=== PATIENT | female | born 1960 | race African-American/Black ===

== ENCOUNTER 2019-02-04 16:13 | Inpatient (IN) ==
[2019-02-04] MEDS ORDERED: SODIUM CHLORIDE 0.9% 500 ML IV STA (18:01)
[2019-02-04 18:06] LABS: Basophils % 0.4 % (0.0-0.8); Eosinophils % 0.4 % (0.00-10.9); Hematocrit 37.3 VOL% (35.7-47.0); Hemoglobin 11.6 GM/DL (12.0-16.0); Immature Granulocytes % 0.2 %; Immature Granulocytes Absolute 0.02 #; Lymphocytes # 2.1 10*3/uL (1.4-4.0); Mean Corpuscular HGB Conc 31.1 GM/DL (32-36); Mean Corpuscular Volume 79.9 FL (87-102); Mean Platelet Volume 12.8 FL (9.6-12.0); Monocytes % 8.4 % (1.7-12.7); Neutrophils % 64.6 % (38.7-73.9); Platelet Count 152 T/CUMM (130-400); Red Blood Count 4.67 MC/CUMM (3.8-5.5); Red Cell Distribution Width 13.3 % (9.3-17.3); White Blood Count 8.1 T/CUMM (4-12)
[2019-02-04 18:30] LABS: Alanine Aminotransferase < 9 U/L (13-56); Albumin 3.5 G/DL (3.4-5.0); Alkaline Phosphatase 72 U/L (45-117); Aspartate Amino Transferase 11 U/L (0-37); Blood Urea Nitrogen 27 MG/DL (7-18); Calcium 9.8 MG/DL (8.5-10.1); Glucose 162 MG/DL (74-106); Osmolality,Calculated 283.7 MOS/KG (273-304); Total Protein 7.6 G/DL (6.4-8.3)
[2019-02-04 20:01] LABS: Apearance,Urine CLOUDY (Clear); Bilirubin,Urine Negative (Negative); Blood, Urine Small mg/dL (Negative); Glucose,Urine (UA) Negative (Negative); Ketones,Urine 20 mg/dL (Negative); Nitrite,Urine Negative (Negative); Protein,Urine 30 MG/DL; Squamous Epithelial Cell,Urine Occasional /HPF (0-10); Urine Color Yellow (Yellow); Urine Specific Gravity 1.038 (1.001-1.035); Urine Urobilinogen < 2.0 EU/DL (0.2-1.0); WBC,Urine 2195 /HPF (0-6)
[2019-02-04] MEDS ORDERED: LEVOFLOXACIN INJ 500 MG in PREMIX 1 EACH IV STA (20:08)
[2019-02-04] MEDS ORDERED: DOCUSATE SODIUM 100 MG CAPSULE PO PRN (22:20)
[2019-02-04] MEDS ORDERED: GLUCAGON 1 MG VIAL IM PRN (22:20)
[2019-02-04] MEDS ORDERED: DEXTROSE 50% 25 GM/50 ML VIAL IV PRN (22:20)
[2019-02-04] MEDS: INSULIN LISPRO 100 UNIT/ML SUBCUT SCH (22:56)
[2019-02-04] MEDS: FAMOTIDINE 20 MG TABLET PO SCH (23:14)
[2019-02-04] MEDS: ENOXAPARIN 40 MG/0.4 ML SYRINGE SUBCUT SCH (23:15)
[2019-02-04] MEDS: cefTRIAXone 1,000 MG in SYRINGE 1 EACH IV SCH (23:15)
[2019-02-04] MEDS: SODIUM CHLORIDE 0.9% 1,000 ML IV SCH (23:19)
[2019-02-05] MEDS: ONDANSETRON 4 MG/2 ML VIAL IV PRN (00:09)
[2019-02-05 04:58] LABS: Basophils % 0.4 % (0.0-0.8); Eosinophils # 0.1 10*3/uL (0.0-0.87); Eosinophils % 0.7 % (0.00-10.9); Hematocrit 34.7 VOL% (35.7-47.0); Hemoglobin 10.6 GM/DL (12.0-16.0); Immature Granulocytes % 0.5 %; Immature Granulocytes Absolute 0.04 #; Lymphocytes # 2.5 10*3/uL (1.4-4.0); Lymphocytes % 32.9 % (21.3-54.2); Mean Corpuscular HGB Conc 30.5 GM/DL (32-36); Mean Corpuscular Volume 80.9 FL (87-102); Mean Platelet Volume 13.2 FL (9.6-12.0); Monocytes % 8.2 % (1.7-12.7); Neutrophils % 57.3 % (38.7-73.9); Platelet Count 140 T/CUMM (130-400); Red Blood Count 4.29 MC/CUMM (3.8-5.5); Red Cell Distribution Width 13.2 % (9.3-17.3); White Blood Count 7.6 T/CUMM (4-12)
[2019-02-05 05:33] LABS: Calcium 9.1 MG/DL (8.5-10.1); Osmolality,Calculated 281.5 MOS/KG (273-304); Thyroid Stimulating Hormone 2.67 uIU/ml (0.358-3.74)
[2019-02-05] MEDS: POLYETHYLENE GLYCOL POWDER 17 GM PACK PO SCH (10:23)
[2019-02-05] MEDS: MEGESTROL 400 MG/10 ML UDCUP PO SCH (10:23)
[2019-02-05] MEDS: LISINOPRIL 10 MG TABLET PO SCH (10:23)
[2019-02-05] MEDS: FAMOTIDINE 20 MG TABLET PO SCH ×2 (10:23→20:26)
[2019-02-05] MEDS: ASPIRIN EC 81 MG TABLET PO SCH (10:23)
[2019-02-05] MEDS: ROSUVASTATIN 10 MG TABLET PO SCH (10:23)
[2019-02-05] MEDS: INSULIN LISPRO 100 UNIT/ML SUBCUT SCH ×4 (10:24→21:56)
[2019-02-05] MEDS: SODIUM CHLORIDE 0.9% 1,000 ML IV SCH ×3 (10:25→22:09)
[2019-02-05] MEDS: ACETAMINOPHEN 325 MG TABLET PO PRN (20:26)
[2019-02-05] MEDS: cefTRIAXone 1,000 MG in SYRINGE 1 EACH IV SCH (21:56)
[2019-02-05] MEDS: ENOXAPARIN 40 MG/0.4 ML SYRINGE SUBCUT SCH (22:02)
[2019-02-06 05:04] LABS: Basophils % 0.4 % (0.0-0.8); Eosinophils # 0.1 10*3/uL (0.0-0.87); Eosinophils % 0.9 % (0.00-10.9); Immature Granulocytes % 0.1 %; Immature Granulocytes Absolute 0.01 #; Lymphocytes # 2.8 10*3/uL (1.4-4.0); Mean Corpuscular HGB Conc 30.3 GM/DL (32-36); Mean Corpuscular Volume 80.5 FL (87-102); Monocytes % 6.9 % (1.7-12.7); Neutrophils % 49.7 % (38.7-73.9); Platelet Count 142 T/CUMM (130-400); Red Cell Distribution Width 13.2 % (9.3-17.3); White Blood Count 6.7 T/CUMM (4-12)
[2019-02-06 05:23] LABS: Calcium 8.8 MG/DL (8.5-10.1)
[2019-02-06] MEDS: SODIUM CHLORIDE 0.9% 1,000 ML IV SCH ×3 (06:38→22:51)
[2019-02-06] MEDS: ONDANSETRON 4 MG/2 ML VIAL IV PRN ×2 (09:00→13:38)
[2019-02-06] MEDS: ROSUVASTATIN 10 MG TABLET PO SCH (09:55)
[2019-02-06] MEDS: ASPIRIN EC 81 MG TABLET PO SCH (09:55)
[2019-02-06] MEDS: MEGESTROL 400 MG/10 ML UDCUP PO SCH (09:55)
[2019-02-06] MEDS: LISINOPRIL 10 MG TABLET PO SCH (09:55)
[2019-02-06] MEDS: POLYETHYLENE GLYCOL POWDER 17 GM PACK PO SCH (09:55)
[2019-02-06] MEDS: FAMOTIDINE 20 MG TABLET PO SCH ×2 (09:55→22:39)
[2019-02-06] MEDS: INSULIN LISPRO 100 UNIT/ML SUBCUT SCH ×4 (09:56→22:38)
[2019-02-06] MEDS: ACETAMINOPHEN 325 MG TABLET PO PRN (13:37)
[2019-02-06] MEDS: ENOXAPARIN 40 MG/0.4 ML SYRINGE SUBCUT SCH (21:50)
[2019-02-06] MEDS: cefTRIAXone 1,000 MG in SYRINGE 1 EACH IV SCH (21:50)
[2019-02-07 05:48] LABS: Basophils % 0.3 % (0.0-0.8); Eosinophils # 0.1 10*3/uL (0.0-0.87); Eosinophils % 1.4 % (0.00-10.9); Hematocrit 31.8 VOL% (35.7-47.0); Hemoglobin 9.6 GM/DL (12.0-16.0); Immature Granulocytes % 0.3 %; Immature Granulocytes Absolute 0.02 #; Lymphocytes # 2.8 10*3/uL (1.4-4.0); Lymphocytes % 39.1 % (21.3-54.2); Mean Corpuscular HGB Conc 30.2 GM/DL (32-36); Mean Corpuscular Volume 80.9 FL (87-102); Mean Platelet Volume 12.4 FL (9.6-12.0); Monocytes % 7.9 % (1.7-12.7); Platelet Count 142 T/CUMM (130-400); Red Blood Count 3.93 MC/CUMM (3.8-5.5); Red Cell Distribution Width 13.3 % (9.3-17.3); White Blood Count 7.1 T/CUMM (4-12)
[2019-02-07 06:09] LABS: Calcium 8.6 MG/DL (8.5-10.1); Osmolality,Calculated 286.6 MOS/KG (273-304)
[2019-02-07] MEDS ORDERED: PROMETHAZINE INJ 25 MG in SODIUM CHLORIDE 0.9% 50 ML IV PRN (07:12)
[2019-02-07] MEDS ORDERED: SUCRALFATE 1 GM/10 ML UDCUP PO SCH (07:30)
[2019-02-07] MEDS: SODIUM CHLORIDE 0.9% 1,000 ML IV SCH ×3 (08:51→23:23)
[2019-02-07] MEDS: MEGESTROL 400 MG/10 ML UDCUP PO SCH (08:52)
[2019-02-07] MEDS: ASPIRIN EC 81 MG TABLET PO SCH (08:53)
[2019-02-07] MEDS: ROSUVASTATIN 10 MG TABLET PO SCH (08:53)
[2019-02-07] MEDS: PANTOPRAZOLE 40 MG TABLET PO SCH ×2 (08:53→18:38)
[2019-02-07] MEDS: LISINOPRIL 10 MG TABLET PO SCH (08:53)
[2019-02-07] MEDS: POLYETHYLENE GLYCOL POWDER 17 GM PACK PO SCH (08:54)
[2019-02-07] MEDS: INSULIN LISPRO 100 UNIT/ML SUBCUT SCH ×4 (10:19→21:57)
[2019-02-07] MEDS ORDERED: hydrALAZINE 20 MG/1 ML VIAL IV PRN (14:08)
[2019-02-07] MEDS: cefTRIAXone 1,000 MG in SYRINGE 1 EACH IV SCH (22:02)
[2019-02-08 05:04] LABS: Basophils % 0.2 % (0.0-0.8); Eosinophils # 0.1 10*3/uL (0.0-0.87); Eosinophils % 1.6 % (0.00-10.9); Hematocrit 32.6 VOL% (35.7-47.0); Hemoglobin 10.3 GM/DL (12.0-16.0); Immature Granulocytes % 0.5 %; Immature Granulocytes Absolute 0.04 #; Lymphocytes # 2.9 10*3/uL (1.4-4.0); Lymphocytes % 35.1 % (21.3-54.2); Mean Corpuscular HGB Conc 31.6 GM/DL (32-36); Mean Corpuscular Volume 79.5 FL (87-102); Mean Platelet Volume 12.9 FL (9.6-12.0); Monocytes % 6.9 % (1.7-12.7); Neutrophils % 55.7 % (38.7-73.9); Platelet Count 143 T/CUMM (130-400); Red Cell Distribution Width 13.4 % (9.3-17.3); White Blood Count 8.1 T/CUMM (4-12)
[2019-02-08] MEDS: ONDANSETRON 4 MG/2 ML VIAL IV PRN (05:20)
[2019-02-08 05:33] LABS: Calcium 8.8 MG/DL (8.5-10.1); Osmolality,Calculated 282.8 MOS/KG (273-304)
[2019-02-08] MEDS: PANTOPRAZOLE 40 MG TABLET PO SCH (08:01)
[2019-02-08] MEDS ORDERED: LIDOCAINE 2% 5 ML VIAL ONE (10:00)
[2019-02-08] MEDS ORDERED: PROPOFOL 200 MG/20 ML VIAL IV ONE (10:00)
[2019-02-08] MEDS ORDERED: PHENYLEPHRINE 1 MG/10 ML SYRINGE IV ONE (10:00)
[2019-02-08] MEDS: INSULIN LISPRO 100 UNIT/ML SUBCUT SCH ×2 (10:24→16:37)
[2019-02-08] MEDS: LISINOPRIL 10 MG TABLET PO SCH (10:24)
[2019-02-08] MEDS: ROSUVASTATIN 10 MG TABLET PO SCH (10:24)
[2019-02-08] MEDS: ASPIRIN EC 81 MG TABLET PO SCH (10:25)
[2019-02-08] MEDS: POLYETHYLENE GLYCOL POWDER 17 GM PACK PO SCH (10:26)
[2019-02-08] MEDS: MEGESTROL 400 MG/10 ML UDCUP PO SCH (10:26)
[2019-02-08] MEDS: cefTRIAXone 1,000 MG in SYRINGE 1 EACH IV SCH (12:06)
[2019-02-08 13:13] VITALS: BP 153/71
== END 2019-02-08 15:30 | disposition home or self-care (01) | DRG 689 ==
LOC: N.ED 16:13 → N.EDINP 20:29 → N.2E 20:53
PROVIDERS: ADMIT Internal Medicine; ATTEND Internal Medicine

== ENCOUNTER 2019-02-21 11:40 | Inpatient (IN) ==
[2019-02-21] MEDS ORDERED: ONDANSETRON 4 MG/2 ML VIAL IV STA (14:47)
[2019-02-21] MEDS ORDERED: METOCLOPRAMIDE 10 MG/2 ML VIAL IV STA (14:47)
[2019-02-21] MEDS ORDERED: SODIUM CHLORIDE 0.9% 500 ML IV STA (14:47)
[2019-02-21] MEDS ORDERED: PANTOPRAZOLE 40 MG VIAL IV STA (14:47)
[2019-02-21 16:00] LABS: Basophils % 0.4 % (0.0-0.8); Eosinophils % 0.1 % (0.00-10.9); Hematocrit 36.9 VOL% (35.7-47.0); Hemoglobin 11.3 GM/DL (12.0-16.0); Immature Granulocytes % 0.6 %; Immature Granulocytes Absolute 0.06 #; Lymphocytes # 2.5 10*3/uL (1.4-4.0); Lymphocytes % 24.5 % (21.3-54.2); Mean Corpuscular HGB Conc 30.6 GM/DL (32-36); Mean Platelet Volume 13.3 FL (9.6-12.0); Monocytes % 8.3 % (1.7-12.7); Neutrophils % 66.1 % (38.7-73.9); Platelet Count 167 T/CUMM (130-400); Red Blood Count 4.67 MC/CUMM (3.8-5.5); Red Cell Distribution Width 15.7 % (9.3-17.3); White Blood Count 10.1 T/CUMM (4-12)
[2019-02-21 16:32] LABS: Apearance,Urine CLOUDY (Clear); Bacteria,Urine Many /HPF (Few); Blood, Urine Small mg/dL (Negative); Glucose,Urine (UA) 50 mg/dL (Negative); Granular Casts,Urine 13 /LPF (0-1); Ketones,Urine 20 mg/dL (Negative); Mucus,Urine Occasional /LPF (Occasional); Nitrite,Urine Negative (Negative); Protein,Urine 100 MG/DL; RBC,Urine 8 /HPF (0-4); Squamous Epithelial Cell,Urine Occasional /HPF (0-10); Urine Color Amber (Yellow); Urine Specific Gravity 1.027 (1.001-1.035); WBC,Urine 106 /HPF (0-6)
[2019-02-21 16:34] LABS: Bilirubin,Urine Small mg/dL (Negative)
[2019-02-21] MEDS ORDERED: cefTRIAXone 1,000 MG in SODIUM CHLORIDE 0.9% 100 ML IV STA (16:43)
[2019-02-21] MEDS ORDERED: cefTRIAXone 1,000 MG in SYRINGE 1 EACH IV STA (16:44)
[2019-02-21 17:01] LABS: Alanine Aminotransferase < 6 U/L (13-56); Albumin 3.4 G/DL (3.4-5.0); Alkaline Phosphatase 69 U/L (45-117); Amylase 37 U/L (25-115); Aspartate Amino Transferase 8 U/L (0-37); Blood Urea Nitrogen 16 MG/DL (7-18); Calcium 9.6 MG/DL (8.5-10.1); Glucose 136 MG/DL (74-106); Total Protein 6.9 G/DL (6.4-8.3)
[2019-02-21] MEDS ORDERED: DOCUSATE SODIUM 100 MG CAPSULE PO PRN (18:56)
[2019-02-21] MEDS ORDERED: LACTULOSE 20 GM/30 ML UDCUP PO PRN (18:56)
[2019-02-21] MEDS ORDERED: DEXTROSE 50% 25 GM/50 ML VIAL IV PRN (19:29)
[2019-02-21] MEDS ORDERED: GLUCAGON 1 MG VIAL IM PRN (19:29)
[2019-02-21] MEDS: hydrALAZINE 20 MG/1 ML VIAL IV PRN (19:52)
[2019-02-21] MEDS: INSULIN REGULAR 100 UNIT/ML SUBCUT SCH (20:54)
[2019-02-21] MEDS: SODIUM CHLORIDE 0.45% 1,000 ML IV SCH (20:54)
[2019-02-21] MEDS: ENOXAPARIN 40 MG/0.4 ML SYRINGE SUBCUT SCH (21:55)
[2019-02-21] MEDS: rOPINIRole 0.25 MG TABLET PO SCH (21:55)
[2019-02-22 05:07] LABS: Basophils # 0.1 10*3/uL (0.0-0.2); Basophils % 0.5 % (0.0-0.8); Eosinophils % 0.2 % (0.00-10.9); Hematocrit 33.5 VOL% (35.7-47.0); Hemoglobin 10.4 GM/DL (12.0-16.0); Immature Granulocytes % 0.5 %; Immature Granulocytes Absolute 0.05 #; Lymphocytes # 3.2 10*3/uL (1.4-4.0); Lymphocytes % 31.1 % (21.3-54.2); Mean Corpuscular Volume 77.7 FL (87-102); Mean Platelet Volume 12.3 FL (9.6-12.0); Monocytes % 6.7 % (1.7-12.7); Platelet Count 200 T/CUMM (130-400); Red Blood Count 4.31 MC/CUMM (3.8-5.5); Red Cell Distribution Width 15.3 % (9.3-17.3); White Blood Count 10.3 T/CUMM (4-12)
[2019-02-22 05:27] LABS: Calcium 9.5 MG/DL (8.5-10.1); Osmolality,Calculated 285.1 MOS/KG (273-304)
[2019-02-22] MEDS: PANTOPRAZOLE 40 MG TABLET PO SCH ×2 (06:05→17:29)
[2019-02-22] MEDS ORDERED: POTASSIUM CHLORIDE 20 MEQ TABLET PO PRN (07:12)
[2019-02-22] MEDS: INSULIN REGULAR 100 UNIT/ML SUBCUT SCH ×4 (08:14→21:20)
[2019-02-22] MEDS: amLODIPine 5 MG TABLET PO SCH (08:34)
[2019-02-22] MEDS: ROSUVASTATIN 10 MG TABLET PO SCH (08:34)
[2019-02-22] MEDS: LISINOPRIL 10 MG TABLET PO SCH (08:34)
[2019-02-22] MEDS: SERTRALINE 50 MG TABLET PO SCH (08:35)
[2019-02-22] MEDS: MEGESTROL 400 MG/10 ML UDCUP PO SCH (08:35)
[2019-02-22] MEDS: ASPIRIN EC 325 MG TABLET PO SCH (08:35)
[2019-02-22] MEDS: cefTRIAXone 2,000 MG in SYRINGE 1 EACH IV SCH (08:35)
[2019-02-22] MEDS: SODIUM CHLORIDE 0.45% 1,000 ML IV SCH (16:17)
[2019-02-22] MEDS: ONDANSETRON 4 MG/2 ML VIAL IV PRN ×2 (17:29→21:46)
[2019-02-22] MEDS: rOPINIRole 0.25 MG TABLET PO SCH (21:19)
[2019-02-22] MEDS: ENOXAPARIN 40 MG/0.4 ML SYRINGE SUBCUT SCH (21:20)
[2019-02-23 08:42] LABS: Basophils % 0.4 % (0.0-0.8); Eosinophils # 0.1 10*3/uL (0.0-0.87); Eosinophils % 0.7 % (0.00-10.9); Hematocrit 31.7 VOL% (35.7-47.0); Hemoglobin 9.8 GM/DL (12.0-16.0); Immature Granulocytes % 0.5 %; Immature Granulocytes Absolute 0.04 #; Lymphocytes # 2.9 10*3/uL (1.4-4.0); Lymphocytes % 36.1 % (21.3-54.2); Mean Corpuscular HGB Conc 30.9 GM/DL (32-36); Mean Corpuscular Volume 77.7 FL (87-102); Monocytes % 6.8 % (1.7-12.7); Neutrophils % 55.5 % (38.7-73.9); Platelet Count 180 T/CUMM (130-400); Red Blood Count 4.08 MC/CUMM (3.8-5.5); Red Cell Distribution Width 15.1 % (9.3-17.3); White Blood Count 8.1 T/CUMM (4-12)
[2019-02-23] MEDS: INSULIN REGULAR 100 UNIT/ML SUBCUT SCH ×4 (08:56→21:29)
[2019-02-23 09:04] LABS: Alanine Aminotransferase < 6 U/L (13-56); Albumin 2.7 G/DL (3.4-5.0); Alkaline Phosphatase 57 U/L (45-117); Aspartate Amino Transferase 4 U/L (0-37); Blood Urea Nitrogen 11 MG/DL (7-18); Calcium 8.8 MG/DL (8.5-10.1); Glucose 150 MG/DL (74-106); Osmolality,Calculated 278.5 MOS/KG (273-304); Total Protein 6.2 G/DL (6.4-8.3)
[2019-02-23] MEDS: LISINOPRIL 10 MG TABLET PO SCH (13:15)
[2019-02-23] MEDS: ROSUVASTATIN 10 MG TABLET PO SCH (13:15)
[2019-02-23] MEDS: ASPIRIN EC 325 MG TABLET PO SCH (13:15)
[2019-02-23] MEDS: amLODIPine 5 MG TABLET PO SCH (13:16)
[2019-02-23] MEDS: SERTRALINE 50 MG TABLET PO SCH (13:16)
[2019-02-23] MEDS: MEGESTROL 400 MG/10 ML UDCUP PO SCH (13:16)
[2019-02-23] MEDS: PANTOPRAZOLE 40 MG TABLET PO SCH ×3 (13:16→17:30)
[2019-02-23] MEDS: SODIUM CHLORIDE 0.45% 1,000 ML IV SCH (14:42)
[2019-02-23] MEDS: cefTRIAXone 2,000 MG in SYRINGE 1 EACH IV SCH (14:42)
[2019-02-23] MEDS: MIRTAZAPINE 15 MG TABLET PO SCH (21:29)
[2019-02-23] MEDS: ENOXAPARIN 40 MG/0.4 ML SYRINGE SUBCUT SCH (21:29)
[2019-02-23] MEDS: CEFUROXIME 250 MG TABLET PO SCH (21:29)
[2019-02-23] MEDS: rOPINIRole 0.25 MG TABLET PO SCH (21:29)
[2019-02-24] MEDS: SODIUM CHLORIDE 0.45% 1,000 ML IV SCH (07:51)
[2019-02-24] MEDS: INSULIN REGULAR 100 UNIT/ML SUBCUT SCH ×4 (07:51→21:18)
[2019-02-24 08:36] LABS: Basophils % 0.4 % (0.0-0.8); Eosinophils # 0.1 10*3/uL (0.0-0.87); Hemoglobin 9.9 GM/DL (12.0-16.0); Immature Granulocytes % 0.5 %; Immature Granulocytes Absolute 0.04 #; Lymphocytes # 3.6 10*3/uL (1.4-4.0); Lymphocytes % 43.8 % (21.3-54.2); Mean Corpuscular HGB Conc 31.9 GM/DL (32-36); Mean Corpuscular Volume 77.1 FL (87-102); Mean Platelet Volume 12.1 FL (9.6-12.0); Monocytes % 6.9 % (1.7-12.7); Neutrophils % 47.4 % (38.7-73.9); Platelet Count 182 T/CUMM (130-400); Red Blood Count 4.02 MC/CUMM (3.8-5.5); Red Cell Distribution Width 15.2 % (9.3-17.3); White Blood Count 8.3 T/CUMM (4-12)
[2019-02-24 08:49] LABS: Alanine Aminotransferase < 6 U/L (13-56); Albumin 2.7 G/DL (3.4-5.0); Alkaline Phosphatase 56 U/L (45-117); Aspartate Amino Transferase 4 U/L (0-37); Blood Urea Nitrogen 10 MG/DL (7-18); Calcium 9.2 MG/DL (8.5-10.1); Glucose 146 MG/DL (74-106); Osmolality,Calculated 278.5 MOS/KG (273-304); Total Protein 6.3 G/DL (6.4-8.3)
[2019-02-24] MEDS: CEFUROXIME 250 MG TABLET PO SCH ×2 (13:15→21:17)
[2019-02-24] MEDS: SERTRALINE 50 MG TABLET PO SCH (13:15)
[2019-02-24] MEDS: PANTOPRAZOLE 40 MG TABLET PO SCH ×3 (13:15→18:41)
[2019-02-24] MEDS: MEGESTROL 400 MG/10 ML UDCUP PO SCH (13:15)
[2019-02-24] MEDS: amLODIPine 5 MG TABLET PO SCH (13:16)
[2019-02-24] MEDS: ROSUVASTATIN 10 MG TABLET PO SCH (13:16)
[2019-02-24] MEDS: LISINOPRIL 10 MG TABLET PO SCH (13:16)
[2019-02-24] MEDS: ASPIRIN EC 325 MG TABLET PO SCH (13:19)
[2019-02-24] MEDS: METOCLOPRAMIDE 10 MG/2 ML VIAL IV SCH ×3 (17:21→21:17)
[2019-02-24] MEDS: rOPINIRole 0.25 MG TABLET PO SCH (21:17)
[2019-02-24] MEDS: ENOXAPARIN 40 MG/0.4 ML SYRINGE SUBCUT SCH (21:17)
[2019-02-24] MEDS: MIRTAZAPINE 15 MG TABLET PO SCH (21:17)
[2019-02-25] MEDS: SODIUM CHLORIDE 0.45% 1,000 ML IV SCH ×2 (04:44→22:42)
[2019-02-25] MEDS: PANTOPRAZOLE 40 MG TABLET PO SCH ×2 (05:57→18:02)
[2019-02-25 07:52] LABS: Basophils % 0.4 % (0.0-0.8); Eosinophils # 0.1 10*3/uL (0.0-0.87); Eosinophils % 0.6 % (0.00-10.9); Hematocrit 32.7 VOL% (35.7-47.0); Hemoglobin 10.2 GM/DL (12.0-16.0); Immature Granulocytes % 0.4 %; Immature Granulocytes Absolute 0.03 #; Lymphocytes # 3.4 10*3/uL (1.4-4.0); Lymphocytes % 43.2 % (21.3-54.2); Mean Corpuscular HGB Conc 31.2 GM/DL (32-36); Mean Corpuscular Volume 77.5 FL (87-102); Mean Platelet Volume 12.4 FL (9.6-12.0); Monocytes % 7.7 % (1.7-12.7); Neutrophils % 47.7 % (38.7-73.9); Platelet Count 188 T/CUMM (130-400); Red Blood Count 4.22 MC/CUMM (3.8-5.5); Red Cell Distribution Width 15.2 % (9.3-17.3); White Blood Count 7.9 T/CUMM (4-12)
[2019-02-25 08:20] LABS: Alanine Aminotransferase < 6 U/L (13-56); Albumin 2.7 G/DL (3.4-5.0); Alkaline Phosphatase 57 U/L (45-117); Aspartate Amino Transferase 6 U/L (0-37); Blood Urea Nitrogen 11 MG/DL (7-18); Calcium 9.3 MG/DL (8.5-10.1); Glucose 158 MG/DL (74-106); Osmolality,Calculated 278.5 MOS/KG (273-304); Total Protein 6.3 G/DL (6.4-8.3)
[2019-02-25] MEDS: LISINOPRIL 10 MG TABLET PO SCH (08:26)
[2019-02-25] MEDS: MEGESTROL 400 MG/10 ML UDCUP PO SCH (08:27)
[2019-02-25] MEDS: amLODIPine 5 MG TABLET PO SCH (08:27)
[2019-02-25] MEDS: ROSUVASTATIN 10 MG TABLET PO SCH (08:27)
[2019-02-25] MEDS: ASPIRIN EC 325 MG TABLET PO SCH (08:27)
[2019-02-25] MEDS: CEFUROXIME 250 MG TABLET PO SCH ×2 (08:27→21:40)
[2019-02-25] MEDS: SERTRALINE 50 MG TABLET PO SCH (08:28)
[2019-02-25] MEDS: hydrALAZINE 20 MG/1 ML VIAL IV PRN (08:28)
[2019-02-25] MEDS: INSULIN REGULAR 100 UNIT/ML SUBCUT SCH ×4 (08:28→22:40)
[2019-02-25] MEDS: METOCLOPRAMIDE 10 MG/2 ML VIAL IV SCH ×2 (08:28→13:10)
[2019-02-25] MEDS ORDERED: MIRTAZAPINE 15 MG TABLET PO SCH (12:36)
[2019-02-25] MEDS: METOCLOPRAMIDE 10 MG/10 ML UDCUP PO SCH ×2 (17:09→21:46)
[2019-02-25] MEDS ORDERED: LACTULOSE 20 GM/30 ML UDCUP PO ONE (20:22)
[2019-02-25] MEDS: rOPINIRole 0.25 MG TABLET PO SCH (21:40)
[2019-02-25] MEDS: ENOXAPARIN 40 MG/0.4 ML SYRINGE SUBCUT SCH (21:42)
[2019-02-26] MEDS: PANTOPRAZOLE 40 MG TABLET PO SCH (06:40)
[2019-02-26] MEDS: METOCLOPRAMIDE 10 MG/10 ML UDCUP PO SCH (06:40)
[2019-02-26 07:30] VITALS: BP 146/86
[2019-02-26] MEDS: INSULIN REGULAR 100 UNIT/ML SUBCUT SCH (08:12)
[2019-02-26] MEDS: CEFUROXIME 250 MG TABLET PO SCH (08:13)
[2019-02-26] MEDS: SERTRALINE 50 MG TABLET PO SCH (08:13)
[2019-02-26] MEDS: amLODIPine 5 MG TABLET PO SCH (08:13)
[2019-02-26] MEDS: ASPIRIN EC 325 MG TABLET PO SCH (08:13)
[2019-02-26] MEDS: ROSUVASTATIN 10 MG TABLET PO SCH (08:13)
[2019-02-26] MEDS: LISINOPRIL 10 MG TABLET PO SCH (08:13)
[2019-02-26 08:47] LABS: Calcium 9.8 MG/DL (8.5-10.1); Osmolality,Calculated 285.3 MOS/KG (273-304)
== END 2019-02-26 11:44 | disposition home health service (06) | DRG 74 ==
LOC: N.ED 11:40 → SUATTDRO 18:56 → N.EDINP 18:56 → N.5E 19:37
PROVIDERS: ADMIT Hospitalist; ATTEND Internal Medicine